=== PATIENT | male | born 1980 | race Caucasian/White ===

== ENCOUNTER → 2018-04-20 13:05 | Outpatient (CLI) | payer BC ==
--- NOTE | ~2018-04-20 | EC ---
PATIENT:BRITTANEY ALBERTO DATE OF SERVICE: 04/20/18 SEX: M MEDICAL RECORD: [id number] DATE OF : 76 LOCATION:[facility] AGE OF PATIENT: 37 ADMISSION DATE: 04/20/18 REFERRING PHYSICIAN: INTERPRETING PHYSICIAN: BIBI NAIDU MD ECHOCARDIOGRAM REPORT ECHO CHARGES 4 ECHO COMPLETE Date: 04/20/18 CLINICAL DIAGNOSIS: HYPERTENSION ECHOCARDIOGRAPHIC MEASUREMENTS (adult normal given) AC root (d.<3.7cm) 3.4 cm LV Septum d (<1.2 cm> 1.3 cm Valve Excursion 0.9 cm LV Septum (systole) 1.4 cm Left Atria (s.<4.0cm> 4.3 cm LVPW d(<1.2cm) 1.4 cm RV (d.<2.3cm) 3.7 cm LVPW (sytole) 1.5 cm LV diastole(<5.6CM) 7.1 cm MV E-F(>70mm/sec) cm LV systole 6.0 cm LVOT Diameter 2.5 cm MV exc.(>10mm) cm Est.ejection fraction (50-75%) % DOPPLER: LVIT cm/sec A 61 cm/sec E 108 cm/sec LA cm/sec RVSP 17.4 mmHg LVOT 102 cm/sec AOP1/2T m/s Asc. Ao 121 cm/sec RVOT 88 cm/sec RA cm/sec PA 109 cm/sec AV Gradient Peak 5.8 mmHg AV Mean 3.4 mmHg AV Area 4.2 cm MV Gradient Peak 8.0 mmHg MV Mean 3.5 mmHg MV Area cm COMMENTS: Account Services Associate: Giuliana [facility] Assembler Adjuster: 1 Dr. Naidu TAPE# PACS Pericardial Effusion N FINDINGS: 1. Left ventricular chamber size is within normal limits. Left ventricular systolic function is normal. Overall ejection fraction estimated at 50%. 2. Left atrium is enlarged at 4.3 cm. Right atrium and right ventricular chamber sizes are as well mildly dilated. 3. Valvular structures have normal structure and motion. 4. Doppler interrogation only reveals mild tricuspid regurgitation. No other valvular insufficiency or stenosis. Pulmonary systolic pressure is normal, estimated 18 mmHg. 5. No evidence of pericardial effusion or left ventricular thrombus. ECHOCARDIOGRAM REPORT [id number] BRITTANEY ALBERTO TRANSINT:[id number] Voice Confirmation ID: [id number] DOCUMENT ID: [id number] BIBI NAIDU MD CC: [id number] DICTATION DATE: 04/21/18 1252 RADIOLOGY PHYSICIAN ASSISTANT: 04/21/18 1300 DEP CLI 04/20/18 [id number] [place] [address]
== END | disposition home or self-care (01) ==
LOC: D.ECHO 13:00
DX: I10 Essential (primary) hypertension (principal)